=== PATIENT | male | born 1975 | race Hispanic/Latino ===

== ENCOUNTER 2023-10-19 10:54 | Emergency (ER) | payer OTHER ==
[~2023-10-19] VITALS: Ht 170.2 cm; Wt 81.6 kg
[2023-10-19 11:29] LABS: BASOPHILS # (AUTO) 0.02 K/uL (0.00-0.20); BASOPHILS % (AUTO) 0.2 % (0.0-5.0); EOSINOPHILS # (AUTO) 0.01 K/uL (0.00-0.70); EOSINOPHILS % (AUTO) 0.1 % (0.0-8.0); HEMATOCRIT 49.1 % (42-54); IMMATURE GRANULOCYTE ABSOLUTE 0.05 K/uL (0-1); LYMPHOCYTES # (AUTO) 1.1 K/uL (1.0-4.8); LYMPHOCYTES % (AUTO) 8.9 % (21.0-51.0); MEAN CORPUSCULAR HEMOGLOBIN 27.7 pg (27.0-33.0); MEAN CORPUSCULAR VOLUME 84.1 fL (79-99); MONOCYTES # (AUTO) 0.3 K/uL (0.1-1.0); MONOCYTES % (AUTO) 2.4 % (3.0-13.0); NEUTROPHILS # (AUTO) 10.6 K/uL (1.8-7.7); PLATELET COUNT (AUTO) 233 K/uL (130-400); RED BLOOD CELL COUNT(AUTO) 5.84 MIL/uL (4.50-6.20); RED CELL DISTRIBUTION WIDTH 13.1 % (11.0-15.5)
[2023-10-19 11:38] LABS: CREATININE 1.2 mg/dL (0.5-1.3); POTASSIUM 4.4 mmol/L (3.5-5.1)
[2023-10-19 11:43] LABS: ALBUMIN 4.2 g/dL (3.5-5.0); BILIRUBIN,TOTAL 0.4 mg/dL (0.2-1.0); TOTAL PROTEIN, SERUM 8.6 g/dL (6.0-8.3)
[2023-10-19 12:19] LABS: APPEARANCE,URINE CLEAR (CLEAR); BILIRUBIN,URINE NEGATIVE (NEGATIVE); COLOR,URINE LIGHT-YELLOW (YELLOW); GLUCOSE, URINE (UA) NEGATIVE (NEGATIVE); KETONES,URINE 10 mg/dL (NEGATIVE); LEUKOCYTE ESTERASE ,URINE NEGATIVE Leu/uL (NEGATIVE); NITRATE,URINE NEGATIVE (NEGATIVE); OCCULT BLOOD,URINE NEGATIVE (NEGATIVE); PH,URINE 5.5 (5.0-8.0); PROTEIN,URINE 30 mg/dL (NEGATIVE); UROBILINOGEN,URINE 0.2 mg/dL (0.2-1.0)
[2023-10-19] MEDS: MORPHINE 4 MG SYG IM ONE (12:28)
[2023-10-19 12:30] LABS: ADD UA MICROSCOPIC YES
[2023-10-19 12:32] LABS: MUCUS,URINE RARE LPF (None Seen); SQUAMOUS EPITHELIAL CELL,UR RARE /HPF (0-2); YEAST,URINE HYPHAE RARE /HPF (None Seen)
[2023-10-19] MEDS: ONDANSETRON 4MG INJ IVP ONE (13:26)
[2023-10-19] MEDS: KETOROLAC 15MG/ML VIAL (15MG/ML) IV ONE (13:26)
[2023-10-19] MEDS: 0.9%NACL 1000ML 1,000 ML IV ONE (13:26)
[2023-10-19] MEDS ORDERED: KETO10TA2 PO (14:57)
[2023-10-19] MEDS ORDERED: ONDA-243 PO (14:57)
[2023-10-19] MEDS ORDERED: CEPH500B PO (14:57)
[2023-10-19] MEDS ORDERED: TAMS-1 PO (14:57)
[2023-10-19] MEDS: cefTRIAXone 1G VIAL IVPB ONE (15:11)
[2023-10-19] MEDS: tamSULOsin HCL 0.4 MG CAP.ER.24H PO ONE (15:11)
[2023-10-19 15:59] VITALS: BP 142/68; PULSE 78; RESP 18; O2SAT 98
== END 2023-10-19 16:05 | disposition home or self-care (01) ==
LOC: EDH 10:54
DX: N20.1 Calculus of ureter (principal); Z88.8 Allergy status to other drugs, medicaments and biological substances
CPT/HCPCS: 99285; 74176; 96374; 96375; 80053; 85025; 81001; 36415; 96372; J7030; J0696; J2405; J2270; J1885